=== PATIENT | female | born 1980 | race Caucasian/White ===

== ENCOUNTER → 2019-11-27 | Outpatient (CLI) | payer OTHER ==
[~2019-11-27] MED LIST: ASCO10004 PO; BIOT5TAB PO; BUPR75TA6 PO; CALC1CAP8 PO; CITA10TA4 PO; LACT1CAP35 PO; MULT-449 PO; TRAZ-175 PO
== END | disposition home or self-care (01) ==
LOC: STAR 09:58
PROVIDERS: ATTEND Obstetrics & Gynecology Female Pelvic Medicine and Reconstructive Surgery
DX: Z01.818 Encounter for other preprocedural examination (principal); Z11.59 Encounter for screening for other viral diseases; N94.6 Dysmenorrhea, unspecified; N92.6 Irregular menstruation, unspecified; N39.3 Stress incontinence (female) (male)
CPT/HCPCS: 36415; 87635

== ENCOUNTER 2019-12-01 13:41 | Observation (INO) | payer OTHER ==
[~2019-12-01] VITALS: Ht 162.6 cm; Wt 76.9 kg
[~2019-12-01 13:41] MED LIST changes: +BUPIVACAINE/PF-EPI 0.25% 1:200K ONE; +VANCOMYCIN 500 MG ONE
[2019-12-01 14:19] VITALS: BP 94/65
[2019-12-01] MEDS ORDERED: CHLORHEXIDINE 15 ML UDC MM ONE (14:30)
[2019-12-01] MEDS: LACTATED RINGERS 1,000 ML IV SCH ×2 (14:39→16:31)
[2019-12-01] MEDS ORDERED: SCOPOLAMINE 1MG PATCH TD SCH (18:00)
[2019-12-01] MEDS ORDERED: DIAZEPAM 5 MG TABLET PO ONE (18:00)
[2019-12-01] MEDS ORDERED: ACETAMINOPHEN 500 MG TABLET PO ONE (18:00)
[2019-12-01] MEDS ORDERED: MIDAZOLAM 1 MG/ML, 2ML ONE (19:03)
[2019-12-01] MEDS ORDERED: FENTANYL PF 250 MCG/5ML ONE (19:04)
[2019-12-01] MEDS ORDERED: METHOCARBAMOL 1,000 MG in DEXTROSE 5% 100 ML IV PRN (20:00)
[2019-12-01] MEDS ORDERED: OXYcodone 5 MG/5 ML ORAL.SOL UDC PO PRN (20:00)
[2019-12-01] MEDS ORDERED: HYDROmorphone 1 MG/ML, 1ML INJ IVPush PRN (20:00)
[2019-12-01] MEDS ORDERED: PROMETHAZINE 25 MG SUPP PR PRN (20:00)
[2019-12-01] MEDS ORDERED: ONDANSETRON 2MG/ML, 2ML IVPush PRN (20:00)
[2019-12-01] MEDS ORDERED: PROMETHAZINE 25 MG/ML, 1ML IVPush PRN (20:00)
[2019-12-01] MEDS ORDERED: CEFAZOLIN 1,000 MG ONE (20:50)
[2019-12-01] MEDS ORDERED: SUCCINYLCHOLINE 20 MG/ML, 10ML ONE (20:50)
[2019-12-01] MEDS ORDERED: NEOSTIGMINE 1 MG/ML, 10ML ONE (20:50)
[2019-12-01] MEDS ORDERED: GLYCOPYRROLATE 0.2MG/1ML, 5ML ONE (20:50)
[2019-12-01] MEDS ORDERED: ONDANSETRON 2MG/ML, 2ML ONE (20:50)
[2019-12-01] MEDS ORDERED: ROCURONIUM 10MG/ML,5ML ONE (20:50)
[2019-12-01] MEDS ORDERED: PROPOFOL 10 MG/ML, 20ML ONE (20:50)
[2019-12-01] MEDS ORDERED: DEXAMETHASONE 4 MG/ML, 1ML ONE (20:50)
[2019-12-01] MEDS ORDERED: SUGAMMADEX 200 MG/2 ML IVPush ONE (21:02)
[2019-12-01] MEDS ORDERED: FENTANYL PF 100 MCG/2ML ONE ×2 (21:17→21:21)
[2019-12-01] MEDS: FENTANYL PF 100 MCG/2ML IV PRN ×2 (21:19→21:24)
[2019-12-01] MEDS ORDERED: PROMETHAZINE 25 MG/ML, 1ML ONE (21:20)
[2019-12-01] MEDS ORDERED: OXYcodone 5 MG/5 ML ORAL.SOL UDC ONE (21:31)
[2019-12-01] MEDS ORDERED: ONDANSETRON 2MG/ML, 2ML IV PRN (23:00)
[2019-12-01] MEDS ORDERED: IBUPROFEN 600 MG TABLET PO PRN (23:00)
[2019-12-01] MEDS ORDERED: KETOROLAC 30 MG/1 ML IV PRN (23:00)
[2019-12-01] MEDS: HYDROmorphone 1 MG/ML, 1ML INJ IV PRN ×2 (23:27→23:49)
[2019-12-01] MEDS: OXYcodone/APAP 5/325MG TABLET PO PRN (23:54)
[2019-12-02] MEDS: OXYcodone/APAP 5/325MG TABLET PO PRN (01:10)
== END 2019-12-02 00:50 | disposition home or self-care (01) ==
LOC: OR 13:41 → 4NE 22:07 → OR 23:57 → 4NE 23:57
PROVIDERS: ADMIT Obstetrics & Gynecology Female Pelvic Medicine and Reconstructive Surgery; ATTEND Obstetrics & Gynecology Female Pelvic Medicine and Reconstructive Surgery
DX: N92.1 Excessive and frequent menstruation with irregular cycle (principal); N94.6 Dysmenorrhea, unspecified; N81.11 Cystocele, midline; N80.3 Endometriosis of pelvic peritoneum; N81.5 Vaginal enterocele; N81.6 Rectocele; F31.9 Bipolar disorder, unspecified; E78.5 Hyperlipidemia, unspecified; F60.3 Borderline personality disorder; N94.10 Unspecified dyspareunia; Z87.410 Personal history of cervical dysplasia; Z79.899 Other long term (current) drug therapy
CPT/HCPCS: 56810; 57265; 58263; 81025; 88307; 96374; 96375; C1771; G0378; J0330; J0690; J1100; J1170; J1885; J2250; J2405; J2550; J2704; J2710; J3010; J3370; J7120